=== PATIENT | male | born 1945 | race Caucasian/White ===

== ENCOUNTER 2025-03-25 13:47 | Outpatient (CLI) | payer MEDICARE ==
[2025-03-25 14:28] LABS: Hematocrit 43.4 % (38.8-50.0); Hemoglobin 14.6 g/dL (13.5-17.5); Mean Corpuscular Hemoglobin 33.1 pg (27.0-33.0); Mean Corpuscular Volume 98.4 fL (81.2-95.1); Platelet Count 194 10x3/uL (150-450); Red Blood Cell (RBC) Count 4.41 10x6/uL (4.32-5.72); White Blood Cell (WBC) Count 7.30 10x3/uL (3.5-10.5)
[2025-03-25 15:03] LABS: Anion Gap 14 mmol/L (10-20); BUN (Urea Nitrogen) 13 mg/dL (8.4-25.7); Calc. Creatinine Clearance 0 mL/min (70-130); Calcium 8.8 mg/dL (7.8-10.44); Carbon Dioxide 25 mmol/L (23-31); Chloride 105 mmol/L (98-107); Glucose 99 mg/dL (83-110); Potassium 4.0 mmol/L (3.5-5.1); Sodium 140 mmol/L (136-145)
== END 2025-03-25 13:48 | disposition home or self-care (01) ==
LOC: CSHLAB 13:47
PROVIDERS: ATTEND Surgery
DX: Z01.818 Encounter for other preprocedural examination (principal); K40.90 Unilateral inguinal hernia, without obstruction or gangrene, not specified as recurrent
CPT/HCPCS: 80048; 85027; 93005; 93010